=== PATIENT | female | born 1960 | race African-American/Black ===

== ENCOUNTER 2023-11-06 00:22 | Emergency (ER) | payer MEDICAID ==
[~2023-11-06] VITALS: Ht 165.1 cm; Wt 70.5 kg
[~2023-11-06 00:22] MED LIST: ASPI-1406 MT; BISA-81 MT; CLOP75TA15 PO; COR6 PO; HYDR100T26 PO; ISOS20TA8 PO; NIFE90TA60 PO; PANT40TA51 MT
[2023-11-06 00:37] VITALS: TEMP 98.3; O2SAT 100
[2023-11-06 02:05] LABS: BASOPHILS % 0.4 % (0.0-2.0); EOSINOPHILS % 1.6 % (0.0-5.0); HEMATOCRIT. 29.7 % (36.0-48.0); MEAN CORPUSCULAR HEMOGLOBIN 30.2 pg (28.0-32.0); MEAN CORPUSCULAR HGB CONC 33.6 g/dL (31.0-37.0); MEAN CORPUSCULAR VOLUME 89.9 fL (81.0-99.0); MONOCYTES % 8.5 % (2.0-8.0); NEUTROPHILS % 66.5 % (40.0-76.0); PLATELET 265 x1000/uL (130-400); RED BLOOD CELL COUNT 3.31 mill/uL (4.2-5.4); RED CELL DISTRIBUTION WIDTH 16.2 % (11.6-14.6); WHITE BLOOD COUNT 6.8 x1000/uL (4.5-11.0)
[2023-11-06 02:16] LABS: POTASSIUM 4.8 mEq/L (3.5-5.1)
[2023-11-06 02:18] LABS: CALCIUM 10.1 mg/dL (8.7-10.4)
[2023-11-06 03:32] VITALS: BP 214/112; PULSE 90; RESP 17
== END 2023-11-06 03:34 | disposition home or self-care (01) ==
LOC: ER 00:22
DX: I11.0 Hypertensive heart disease with heart failure (principal); E11.9 Type 2 diabetes mellitus without complications; K80.20 Calculus of gallbladder without cholecystitis without obstruction; I50.9 Heart failure, unspecified; Z98.890 Other specified postprocedural states
CPT/HCPCS: 36415; 71045; 80048; 83880; 85025; 93005; 99285

== ENCOUNTER 2024-07-20 03:19 | Inpatient (IN) | payer MEDICAID ==
[~2024-07-20] VITALS: Ht 165.1 cm; Wt 64.4 kg
[~2024-07-20 03:19] MED LIST changes: +HYDR100T11 PO; -HYDR100T26 PO
[2024-07-20 03:26] VITALS: RESP 30
[2024-07-20] MEDS: HYDRALAZINE 20MG/ML VIAL IV ONE (03:49)
[2024-07-20] MEDS: SODIUM CHLORIDE 0.9% 100 ML IV ONE (03:50)
[2024-07-20] MEDS: PIPERACILLIN/TAZO 3.375G/50ML 50 ML IV ONE (03:50)
[2024-07-20 03:52] LABS: CHLORIDE 114 mEq/L (98-107); POTASSIUM 5.2 mEq/L (3.5-5.1); SODIUM 142 mEq/L (136-145)
[2024-07-20 03:53] LABS: CALCIUM 10.1 mg/dL (8.7-10.4); CARBON DIOXIDE 17 mEq/L (21-32)
[2024-07-20 03:56] LABS: BASOPHILS % 0.5 % (0.0-2.0); EOSINOPHILS % 2.5 % (0.0-5.0); HEMATOCRIT. 27.3 % (36.0-48.0); LYMPHOCYTES % 10.5 % (20.0-50.0); MEAN CORPUSCULAR HEMOGLOBIN 30.1 pg (28.0-32.0); MEAN CORPUSCULAR HGB CONC 33.1 g/dL (31.0-37.0); MEAN PLATELET VOLUME 9.8 fl (7.4-10.4); MONOCYTES % 5.7 % (2.0-8.0); NEUTROPHILS % 80.8 % (40.0-76.0); PLATELET 276 x1000/uL (130-400); RED CELL DISTRIBUTION WIDTH 15.4 % (11.6-14.6)
[2024-07-20 03:58] LABS: GLUCOSE 214 mg/dL (70-105)
[2024-07-20 03:59] LABS: TROPONIN I HIGH SENSITIVITY 33 ng/L (3.0-34); UREA NITROGEN BLOOD 50 mg/dL (9-23)
[2024-07-20 04:00] LABS: ALANINE AMINOTRANSFERASE 9 IU/L (10-49); ALBUMIN 4.6 g/dL (3.2-4.8); ASPARTATE AMINOTRANSFERASE 14 IU/L (<34); BILIRUBIN DIRECT 0.1 mg/dL (<=3.0)
[2024-07-20 04:01] LABS: BILIRUBIN TOTAL 0.3 mg/dL (0.1-1.0); PROTEIN TOTAL 7.5 g/dL (6.0-8.3)
[2024-07-20 04:04] LABS: CREATININE 4.1 mg/dL (0.6-1.0); ETHANOL BLOOD < 10 mg/dL (<10)
[2024-07-20 04:06] LABS: PROTHROMBIN TIME 10.9 sec (9.6-11.0)
[2024-07-20 04:36] VITALS: RESP 33
[2024-07-20] MEDS: ALBUTEROL (0.5%) 2.5MG/0.5ML NEB HHN ONE (04:36)
[2024-07-20] MEDS: VANCOMYCIN 1.25GM/250ML 250 ML IV ONE (05:07)
[2024-07-20] MEDS: FUROSEMIDE 40MG/4ML VIAL IVP NR (05:22)
[2024-07-20 08:57] LABS: CLARITY URINE CLEAR (CLEAR); COLOR URINE YELLOW (YELLOW); GLUCOSE URINE 1+ (NEGATIVE); KETONES URINE NEGATIVE (NEGATIVE); LEUKOCYTE ESTERASE URINE NEGATIVE (NEGATIVE); NITRITE URINE NEGATIVE (NEGATIVE); OCCULT BLOOD URINE NEGATIVE (NEGATIVE); PH URINE 5.5 (4.5-8.0); PROTEIN URINE 4+ (NEGATIVE); SPECIFIC GRAVITY URINE 1.015 (1.005-1.030); UROBILINOGEN URINE 0.2 E.U./dL (0.2-1.0)
[2024-07-20 09:15] VITALS: RESP 28
[2024-07-20 09:16] LABS: BACTERIA URINE 1+; RBC URINE 0-2 /hpf (0-2); SQUAMOUS EPITHELIAL CELL URINE 1+ /lpf (RARE/1+); YEAST URINE NONE SEEN
[2024-07-20 09:46] LABS: *AMPHETAMINES SCREEN URINE NEGATIVE (NEGATIVE); *BARBITURATES SCREEN URINE NEGATIVE (NEGATIVE); *BENZODIAZEPINES SCREEN URINE NEGATIVE (NEGATIVE); *COCAINE SCREEN URINE NEGATIVE (NEGATIVE); CANNABINOID URINE SCREEN NEGATIVE (NEGATIVE); ECSTASY MDMA SCREEN URINE NEGATIVE (NEGATIVE); METHADONE URINE SCREEN NEGATIVE (NEGATIVE); OPIATES URINE SCREEN NEGATIVE (NEGATIVE); PHENCYCLIDINE URINE SCREEN NEGATIVE (NEGATIVE)
[2024-07-20] MEDS ORDERED: CLONIDINE 0.2MG TABLET PO PRN (10:20)
[2024-07-20] MEDS: CLONIDINE 0.1MG TABLET PO PRN (10:49)
[2024-07-20 11:05] LABS: BG BASE EXCESS -10.1 mmol/L (-2.0-3.0); BG CARBOXYHEMOGLOBIN 0.6 % (0.5-1.5); BG DEOXYHEMOGLOBIN 0.3 % (0.0-5.0); BG FRACTION INSPIRED OXYGEN 80; BG HCO3 ACT 15.2 mmol/L (21.0-28.0); BG METHEMOGLOBIN 0.5 % (0.5-1.5); BG OXYGEN SATURATION 99.7 % (94.0-98.0); BG OXYHEMOGLOBIN 98.6 % (94.0-98.0); BG PCO2 31.4 mmHg (32.0-45.0); BG PH 7.304 (7.350-7.450); BG PO2 280.1 mmHg (83.0-108.0); BG SAMPLE SITE RIGHT RADIAL; BG TOTAL HEMOGLOBIN 8.1 g/dL (12.0-16.0); BG VENT MODE MASK - BIPAP
[2024-07-20 13:14] LABS: CREATINE KINASE 358 IU/L (34-145)
[2024-07-20 14:10] VITALS: RESP 22
[2024-07-20] MEDS: AZITHROMYCIN 500 MG TABLET PO SCH (14:14)
[2024-07-20] MEDS ORDERED: IPRATROPIUM/ALBUTEROL 0.5-3(2.5)MG/3ML NEB HHN PRN (15:30)
[2024-07-20] MEDS ORDERED: METHYLPREDNISOLONE SOD SUCC 40MG/ML (ACT-O-VIAL) IV SCH (15:30)
[2024-07-20 18:00] VITALS: RESP 20
[2024-07-20] MEDS ORDERED: HYDROCODONE/ACETAMINOPHEN 5/325MG TABLET PO PRN (18:15)
[2024-07-20] MEDS ORDERED: IPRATROPIUM/ALBUTEROL 0.5-3(2.5)MG/3ML NEB NEB PRN (18:15)
[2024-07-20] MEDS ORDERED: ACETAMINOPHEN 325MG TABLET PO PRN (18:15)
[2024-07-20] MEDS ORDERED: CLONIDINE 0.1MG TABLET PO PRN (18:15)
[2024-07-20] MEDS ORDERED: ENOXAPARIN 40MG/0.4ML SYR SUBCUT SCH (18:15)
[2024-07-20] MEDS ORDERED: ONDANSETRON HCL 4MG/2ML INJ IV PRN (18:15)
[2024-07-20] MEDS ORDERED: MORPHINE SULFATE 2 MG/ML INJ (NOT FOR IM USE) IV PRN (18:15)
[2024-07-20] MEDS ORDERED: NALOXONE HCL 0.4MG/ML VIAL IV PRN (18:30)
[2024-07-20] MEDS ORDERED: HYDRALAZINE HCL 25MG TABLET PO SCH (19:00)
[2024-07-20] MEDS ORDERED: HYDRALAZINE 20MG/ML VIAL IV PRN (19:00)
[2024-07-20] MEDS: FUROSEMIDE 40MG/4ML VIAL IVP SCH (19:39)
[2024-07-20] MEDS: ENALAPRIL 1.25MG/ML VIAL 1ML IV PRN (19:39)
[2024-07-20] MEDS: ASPIRIN 81MG EC TABLET PO SCH (19:40)
[2024-07-20] MEDS: AMLODIPINE 5MG TABLET PO NR (19:40)
[2024-07-20] MEDS: CLOPIDOGREL 75MG TABLET PO SCH (19:40)
[2024-07-20] MEDS: ENOXAPARIN 30MG/0.3ML SYR SUBCUT SCH (19:41)
[2024-07-20] MEDS: PANTOPRAZOLE 40MG DR TABLET PO SCH (19:42)
[2024-07-20] MEDS ORDERED: PIPERACILLIN/TAZO 3.375G/50ML 50 ML IV SCH (20:00)
[2024-07-20] MEDS: CEFTRIAXONE 2GM/50ML 50 ML IV SCH (20:11)
[2024-07-20 21:05] VITALS: BP 211/101; PULSE 90; RESP 20; TEMP 37.1408
[2024-07-20] MEDS: NIFEDIPINE XL 90MG TAB PO SCH (21:39)
[2024-07-20] MEDS: HYDRALAZINE HCL 100MG TABLET PO SCH (21:39)
[2024-07-20] MEDS: CARVEDILOL 6.25 MG TABLET PO SCH (21:40)
[2024-07-20] MEDS: METHYLPREDNISOLONE SOD SUCC 125MG/2ML (ACT-O-VIAL) IV SCH (21:40)
[2024-07-20] MEDS: ISOSORBIDE DINITRATE 20MG TABLET PO SCH (23:58)
[2024-07-21] VITALS (10 sets, daily range): BP systolic 125–144; BP diastolic 52–66; PULSE 71–86; RESP 16–22; TEMP 36.55848–36.78072; O2SAT 96–100
[2024-07-21] MEDS: IPRATROPIUM/ALBUTEROL 0.5-3(2.5)MG/3ML NEB HHN SCH (02:30)
[2024-07-21 08:49] LABS: POTASSIUM 5.3 mEq/L (3.5-5.1)
[2024-07-21 08:50] LABS: CALCIUM 9.6 mg/dL (8.7-10.4)
[2024-07-21 08:54] LABS: CREATINE KINASE MB FRACTION 2.9 ng/mL (0.5-3.6)
[2024-07-21 08:55] LABS: CREATININE 4.1 mg/dL (0.6-1.0)
[2024-07-21 09:12] LABS: HEPATITIS B SURFACE ANTIGEN NEGATIVE (Negative)
[2024-07-21] MEDS: AMLODIPINE 10MG TABLET PO SCH (09:25)
[2024-07-21 09:33] LABS: HEPATITIS C AB NON REACTIVE (Neg) (Negative)
[2024-07-21 09:40] LABS: BG BASE EXCESS -10.5 mmol/L (-2.0-3.0); BG CARBOXYHEMOGLOBIN 2.5 % (0.5-1.5); BG DEOXYHEMOGLOBIN 1.7 % (0.0-5.0); BG FRACTION INSPIRED OXYGEN 32; BG HCO3 ACT 14.5 mmol/L (21.0-28.0); BG METHEMOGLOBIN 0.3 % (0.5-1.5); BG OXYGEN SATURATION 98.3 % (94.0-98.0); BG OXYHEMOGLOBIN 95.5 % (94.0-98.0); BG PCO2 28.7 mmHg (32.0-45.0); BG PH 7.322 (7.350-7.450); BG PO2 107.7 mmHg (83.0-108.0); BG SAMPLE SITE RIGHT RADIAL; BG TOTAL HEMOGLOBIN 6.7 g/dL (12.0-16.0); BG VENT MODE NASAL CANNULA
[2024-07-21 10:59] LABS: HEMATOCRIT. 21.7 % (36.0-48.0); MEAN CORPUSCULAR HEMOGLOBIN 29.4 pg (28.0-32.0); MEAN CORPUSCULAR HGB CONC 31.8 g/dL (31.0-37.0); MEAN CORPUSCULAR VOLUME 92.3 fL (81.0-99.0); MEAN PLATELET VOLUME 10.1 fl (7.4-10.4); PLATELET 232 x1000/uL (130-400); RED BLOOD CELL COUNT 2.35 mill/uL (4.2-5.4); RED CELL DISTRIBUTION WIDTH 15.3 % (11.6-14.6); WHITE BLOOD COUNT 6.2 x1000/uL (4.5-11.0)
[2024-07-21 11:16] LABS: DIFFERENTIAL COMMENT 1; HEMOGLOBIN. 6.9 g/dL (12.0-16.0)
[2024-07-21] MEDS ORDERED: SODIUM POLYSTYRENE SULFONATE 15 G/60 ML BOT PO ONE (12:30)
[2024-07-21] MEDS: ISOSORBIDE DINITRATE 20MG TABLET PO SCH (13:00)
[2024-07-21 13:19] LABS: HEMATOCRIT 23.1 % (36.0-48.0); HEMOGLOBIN 7.3 g/dL (12.0-16.0)
[2024-07-21] MEDS: CITRIC ACID/SODIUM CITRATE SOLN 30ML UDC PO SCH (14:04)
[2024-07-21] MEDS: SODIUM ZIRCONIUM CYCLOSILICATE 10GM/PACKET PO NR (14:04)
[2024-07-21] MEDS: CEFTRIAXONE 2GM/50ML 50 ML IV SCH (21:33)
[2024-07-22] VITALS (11 sets, daily range): BP systolic 125–140; BP diastolic 47–72; PULSE 72–91; RESP 16–18; TEMP 35.94732–37.503; O2SAT 95–99
[2024-07-22 06:36] LABS: PLATELET ESTIMATE NORMAL
[2024-07-22 06:54] LABS: POTASSIUM 5.3 mEq/L (3.5-5.1)
[2024-07-22 06:56] LABS: CALCIUM 9.7 mg/dL (8.7-10.4)
[2024-07-22 07:00] LABS: CREATININE 4.6 mg/dL (0.6-1.0)
[2024-07-22 07:25] LABS: HEMATOCRIT. 22.4 % (36.0-48.0); HEMOGLOBIN. 7.3 g/dL (12.0-16.0); MEAN CORPUSCULAR HEMOGLOBIN 29.4 pg (28.0-32.0); MEAN CORPUSCULAR HGB CONC 32.5 g/dL (31.0-37.0); MEAN CORPUSCULAR VOLUME 90.4 fL (81.0-99.0); MEAN PLATELET VOLUME 10.1 fl (7.4-10.4); PLATELET 267 x1000/uL (130-400); RED BLOOD CELL COUNT 2.48 mill/uL (4.2-5.4); RED CELL DISTRIBUTION WIDTH 14.6 % (11.6-14.6); WHITE BLOOD COUNT 6.6 x1000/uL (4.5-11.0)
[2024-07-22 07:32] LABS: DIFFERENTIAL COMMENT 1
[2024-07-22 11:39] LABS: PLATELET ESTIMATE NORMAL
[2024-07-22] MEDS: METHYLPREDNISOLONE SOD SUCC 40MG/ML (ACT-O-VIAL) IV SCH (21:21)
[2024-07-23] VITALS (17 sets, daily range): BP systolic 121–161; BP diastolic 48–77; PULSE 67–86; RESP 15–20; TEMP 35.89176–36.89184; O2SAT 95–98
[2024-07-23 07:10] LABS: POTASSIUM 5.4 mEq/L (3.5-5.1)
[2024-07-23 07:18] LABS: CALCIUM 8.7 mg/dL (8.7-10.4)
[2024-07-23 07:21] LABS: CREATININE 4.9 mg/dL (0.6-1.0)
[2024-07-23 07:46] LABS: HEMATOCRIT. 21.4 % (36.0-48.0); MEAN CORPUSCULAR HEMOGLOBIN 29.6 pg (28.0-32.0); MEAN CORPUSCULAR HGB CONC 32.9 g/dL (31.0-37.0); MEAN CORPUSCULAR VOLUME 89.8 fL (81.0-99.0); MEAN PLATELET VOLUME 10.2 fl (7.4-10.4); PLATELET 263 x1000/uL (130-400); RED BLOOD CELL COUNT 2.38 mill/uL (4.2-5.4); RED CELL DISTRIBUTION WIDTH 14.7 % (11.6-14.6); WHITE BLOOD COUNT 8.8 x1000/uL (4.5-11.0)
[2024-07-23 08:21] LABS: DIFFERENTIAL COMMENT 1
[2024-07-23] MEDS: SODIUM BICARBONATE 650MG TABLET PO SCH (09:45)
[2024-07-23] MEDS: SODIUM ZIRCONIUM CYCLOSILICATE 10GM/PACKET PO NR (09:45)
[2024-07-23] MEDS: ALBUTEROL (0.5%) 2.5MG/0.5ML NEB HHN NR (09:55)
[2024-07-23] MEDS: EPOETIN ALFA-EPBX 4,000 UNIT/ML VIAL SUBCUT SCH (13:16)
[2024-07-23 13:48] LABS: PLATELET ESTIMATE NORMAL
[2024-07-23 21:23] LABS: HEMATOCRIT 24.7 % (36.0-48.0); HEMOGLOBIN 8.2 g/dL (12.0-16.0)
[2024-07-24] VITALS: BP 132/52; PULSE 81; RESP 18; TEMP 37.00296; O2SAT 96
[2024-07-24 04:00] VITALS: BP 131/55; PULSE 73; RESP 18; TEMP 36.72516; O2SAT 96
[2024-07-24 06:58] LABS: POTASSIUM 4.5 mEq/L (3.5-5.1)
[2024-07-24 06:59] LABS: CALCIUM 8.4 mg/dL (8.7-10.4)
[2024-07-24 07:29] LABS: BASOPHILS % 0.1 % (0.0-2.0); EOSINOPHILS % 1.6 % (0.0-5.0); HEMATOCRIT. 24.7 % (36.0-48.0); HEMOGLOBIN. 8.4 g/dL (12.0-16.0); LYMPHOCYTES % 14.3 % (20.0-50.0); MEAN CORPUSCULAR HEMOGLOBIN 30.1 pg (28.0-32.0); MEAN CORPUSCULAR HGB CONC 33.9 g/dL (31.0-37.0); MEAN CORPUSCULAR VOLUME 88.8 fL (81.0-99.0); MEAN PLATELET VOLUME 10.1 fl (7.4-10.4); PLATELET 287 x1000/uL (130-400); RED BLOOD CELL COUNT 2.78 mill/uL (4.2-5.4)
[2024-07-24 08:00] VITALS: BP 133/51; PULSE 80; RESP 22; TEMP 36.50292; O2SAT 99
[2024-07-24] MEDS: METHYLPREDNISOLONE SOD SUCC 40MG/ML (ACT-O-VIAL) IV SCH (09:36)
[2024-07-24] MEDS ORDERED: SODI650T PO (12:04)
[2024-07-24] MEDS ORDERED: FURO-151 PO (12:04)
[2024-07-24] MEDS ORDERED: ISOS20TA8 PO (12:04)
[2024-07-24 13:15] VITALS: BP 134/59; PULSE 87; TEMP 97.7; O2SAT 98
[2024-07-24] MEDS ORDERED: GUAIFENESIN 600MG ER TABLET PO SCH (21:00)
[2024-07-25 13:06] LABS: ALBUMIN 2.9 g/dL (2.9-4.4); ALPHA-1-GLOBULIN 0.4 g/dL (0.0-0.4); ALPHA-2-GLOBULIN 0.9 g/dL (0.4-1.0); BETA GLOBULIN 0.9 g/dL (0.7-1.3); GAMMA GLOBULINS 0.8 g/dL (0.4-1.8); M-SPIKE Not Observed g/dL (Not Observed); TOTAL PROTEIN SERUM 5.9 g/dL (6.0-8.5)
== END 2024-07-24 14:40 | disposition home or self-care (01) | DRG 720 ==
LOC: ER 03:25 → 5EST 05:04 → EDBEDREQ 05:10 → EDBEDREQTM 05:10 → 6EST 07-21 23:09
PROVIDERS: ADMIT Internal Medicine; ATTEND Internal Medicine
PROC: 5A09357 Assistance with Respiratory Ventilation, Less than 24 Consecutive Hours, Continuous Positive Airway Pressure (ICD-10-PCS; principal; 2024-07-20)
PROC: 30233N1 Transfusion of Nonautologous Red Blood Cells into Peripheral Vein, Percutaneous Approach (ICD-10-PCS; 2024-07-23)
DX: A41.9 Sepsis, unspecified organism (principal); J96.01 Acute respiratory failure with hypoxia; N17.0 Acute kidney failure with tubular necrosis; R65.21 Severe sepsis with septic shock; I50.43 Acute on chronic combined systolic (congestive) and diastolic (congestive) heart failure; J18.9 Pneumonia, unspecified organism; N18.6 End stage renal disease; E87.20 Acidosis, unspecified; Z20.822 Contact with and (suspected) exposure to COVID-19; I13.2 Hypertensive heart and chronic kidney disease with heart failure and with stage 5 chronic kidney disease, or end stage renal disease; E11.22 Type 2 diabetes mellitus with diabetic chronic kidney disease; D64.9 Anemia, unspecified; E87.5 Hyperkalemia; Z79.02 Long term (current) use of antithrombotics/antiplatelets; Z51.5 Encounter for palliative care; Z86.718 Personal history of other venous thrombosis and embolism; Z91.148 Patient's other noncompliance with medication regimen for other reason; Z98.51 Tubal ligation status; Z85.3 Personal history of malignant neoplasm of breast
CPT/HCPCS: 36415; 36600; 71045; 76770; 78580; 80048; 80076; 80305; 80320; 81003; 82375; 82550; 82553; 82805; 82962; 83605; 83880; 84145; 84155; 84165; 84484; 85014; 85018; 85025; 85379; 86038; 86705; 86850; 86900; 86920; 87340; 87426; 87804; 93005; 93306; 93970; 94070; 94640; 94660; 99291; A4606; A4663; J0360; J0696; J0885; J1650; J1940; J2270; J2543; J2919; J2920; J3370; J3490; J7050; P9016; G0480

== ENCOUNTER 2024-09-24 07:03 | Inpatient (IN) | payer MEDICAID ==
[~2024-09-24] VITALS: Ht 165.1 cm; Wt 60.6 kg
[2024-09-24] VITALS (49 sets, daily range): BP systolic 130–210; BP diastolic 60–97; PULSE 88–112; RESP 14–23; TEMP 36.2–37; O2SAT 93–100
[~2024-09-24 07:03] MED LIST changes: +FURO-151 PO; +SODI650T PO
[2024-09-24] MEDS: FUROSEMIDE 40MG/4ML VIAL IVP ONE (07:28)
[2024-09-24 07:58] LABS: CHLORIDE 111 mEq/L (98-107)
[2024-09-24 07:59] LABS: CALCIUM 9.4 mg/dL (8.7-10.4); CARBON DIOXIDE 19 mEq/L (21-32)
[2024-09-24 08:00] LABS: SODIUM 140 mEq/L (136-145)
[2024-09-24] MEDS ORDERED: NITROGLYCERIN 50MG PREMIX 250 ML IV ONE (08:00)
[2024-09-24 08:04] LABS: CREATININE 4.1 mg/dL (0.6-1.0); GLUCOSE 142 mg/dL (70-105); UREA NITROGEN BLOOD 50 mg/dL (9-23)
[2024-09-24 08:09] LABS: BASOPHILS % 0.7 % (0.0-2.0); EOSINOPHILS % 4.3 % (0.0-5.0); HEMOGLOBIN. 9.8 g/dL (12.0-16.0); LYMPHOCYTES % 43.7 % (20.0-50.0); MEAN CORPUSCULAR HEMOGLOBIN 29.2 pg (28.0-32.0); MEAN CORPUSCULAR HGB CONC 31.7 g/dL (31.0-37.0); MEAN CORPUSCULAR VOLUME 92.3 fL (81.0-99.0); MEAN PLATELET VOLUME 10.2 fl (7.4-10.4); MONOCYTES % 5.3 % (2.0-8.0); PLATELET 286 x1000/uL (130-400); RED BLOOD CELL COUNT 3.36 mill/uL (4.2-5.4); RED CELL DISTRIBUTION WIDTH 16.3 % (11.6-14.6)
[2024-09-24 08:10] LABS: POTASSIUM 8.4 mEq/L (3.5-5.1); TROPONIN I HIGH SENSITIVITY 118 ng/L (3.0-34)
[2024-09-24] MEDS: NITROGLYCERIN 50MG PREMIX 250 ML IV PRN (08:13)
[2024-09-24 08:51] LABS: POTASSIUM 4.7 mEq/L (3.5-5.1)
[2024-09-24 08:52] LABS: CALCIUM 9.8 mg/dL (8.7-10.4)
[2024-09-24 08:57] LABS: CREATININE 4.1 mg/dL (0.6-1.0)
[2024-09-24 09:15] LABS: BG BASE EXCESS -8.5 mmol/L (-2.0-3.0); BG CARBOXYHEMOGLOBIN 0.4 % (0.5-1.5); BG DEOXYHEMOGLOBIN 0.2 % (0.0-5.0); BG FRACTION INSPIRED OXYGEN 60; BG HCO3 ACT 16.4 mmol/L (21.0-28.0); BG METHEMOGLOBIN 0.2 % (0.5-1.5); BG OXYGEN SATURATION 99.8 % (94.0-98.0); BG OXYHEMOGLOBIN 99.2 % (94.0-98.0); BG PCO2 31.4 mmHg (32.0-45.0); BG PH 7.335 (7.350-7.450); BG PO2 285.3 mmHg (83.0-108.0); BG SAMPLE SITE RIGHT BRACHIAL; BG TOTAL HEMOGLOBIN 10.2 g/dL (12.0-16.0); BG VENT MODE MASK - BIPAP
[2024-09-24] MEDS ORDERED: MORPHINE SULFATE 2 MG/ML INJ (NOT FOR IM USE) IV PRN (11:15)
[2024-09-24] MEDS ORDERED: ACETAMINOPHEN 325MG TABLET PO PRN (11:15)
[2024-09-24] MEDS ORDERED: ZOLPIDEM TARTRATE 5MG TABLET PO PRN (11:15)
[2024-09-24] MEDS ORDERED: CLONIDINE 0.1MG TABLET PO PRN (11:15)
[2024-09-24] MEDS ORDERED: ONDANSETRON HCL 4MG/2ML INJ IV PRN (11:15)
[2024-09-24] MEDS ORDERED: HYDROCODONE/ACETAMINOPHEN 5/325MG TABLET PO PRN (11:15)
[2024-09-24] MEDS ORDERED: NALOXONE HCL 0.4MG/ML VIAL IV PRN (11:30)
[2024-09-24] MEDS: HYDRALAZINE 20MG/ML VIAL IV PRN (16:10)
[2024-09-24] MEDS: FUROSEMIDE 40MG/4ML VIAL IVP SCH (16:10)
[2024-09-24] MEDS: SODIUM BICARBONATE 650MG TABLET PO SCH (16:11)
[2024-09-24] MEDS: HYDRALAZINE HCL 100MG TABLET PO SCH (16:11)
[2024-09-24] MEDS: ENOXAPARIN 30MG/0.3ML SYR SUBCUT SCH (16:12)
[2024-09-24 17:38] LABS: TROPONIN I HIGH SENSITIVITY 111 ng/L (3.0-34)
[2024-09-24 18:28] LABS: *AMPHETAMINES SCREEN URINE NEGATIVE (NEGATIVE); *BARBITURATES SCREEN URINE NEGATIVE (NEGATIVE); *BENZODIAZEPINES SCREEN URINE NEGATIVE (NEGATIVE); *COCAINE SCREEN URINE NEGATIVE (NEGATIVE)
[2024-09-24 18:29] LABS: CANNABINOID URINE SCREEN NEGATIVE (NEGATIVE); ECSTASY MDMA SCREEN URINE NEGATIVE (NEGATIVE); METHADONE URINE SCREEN NEGATIVE (NEGATIVE); OPIATES URINE SCREEN NEGATIVE (NEGATIVE); PHENCYCLIDINE URINE SCREEN NEGATIVE (NEGATIVE)
[2024-09-24] MEDS: NIFEDIPINE XL 90MG TAB PO SCH (21:25)
[2024-09-24] MEDS: ISOSORBIDE DINITRATE 20MG TABLET PO SCH (21:26)
[2024-09-24] MEDS: CARVEDILOL 6.25 MG TABLET PO SCH (21:26)
[2024-09-25] VITALS (86 sets, daily range): BP systolic 118–156; BP diastolic 51–110; PULSE 74–93; RESP 3–35; TEMP 36.7–37.1; O2SAT 91–100
[2024-09-25 00:24] LABS: TROPONIN I HIGH SENSITIVITY 130 ng/L (3.0-34)
[2024-09-25 05:55] LABS: BASOPHILS % 0.7 % (0.0-2.0); EOSINOPHILS % 3.3 % (0.0-5.0); HEMATOCRIT. 23.9 % (36.0-48.0); HEMOGLOBIN. 7.7 g/dL (12.0-16.0); LYMPHOCYTES % 21.6 % (20.0-50.0); MEAN CORPUSCULAR HEMOGLOBIN 29.7 pg (28.0-32.0); MEAN CORPUSCULAR HGB CONC 32.3 g/dL (31.0-37.0); MEAN PLATELET VOLUME 9.7 fl (7.4-10.4); MONOCYTES % 10.5 % (2.0-8.0); NEUTROPHILS % 63.9 % (40.0-76.0); PLATELET 217 x1000/uL (130-400); RED CELL DISTRIBUTION WIDTH 15.3 % (11.6-14.6); WHITE BLOOD COUNT 4.7 x1000/uL (4.5-11.0)
[2024-09-25 06:08] LABS: POTASSIUM 4.3 mEq/L (3.5-5.1)
[2024-09-25 06:14] LABS: CREATININE 4.1 mg/dL (0.6-1.0)
[2024-09-25] MEDS: PANTOPRAZOLE SODIUM 40 MG/VIAL IV SCH (08:30)
[2024-09-25] MEDS: CLOPIDOGREL 75MG TABLET PO SCH (08:31)
[2024-09-25] MEDS: ASPIRIN 81MG EC TABLET PO SCH (08:31)
[2024-09-25 08:39] LABS: CREATINE KINASE 210 IU/L (34-145)
[2024-09-25 17:22] LABS: HEMATOCRIT 23.6 % (36.0-48.0); HEMOGLOBIN 7.6 g/dL (12.0-16.0); MEAN CORPUSCULAR HEMOGLOBIN 29.1 pg (28.0-32.0); MEAN CORPUSCULAR HGB CONC 32.1 g/dL (31.0-37.0); MEAN CORPUSCULAR VOLUME 90.8 fL (81.0-99.0); PLATELET 220 x1000/uL (130-400); WHITE BLOOD COUNT 4.1 x1000/uL (4.5-11.0)
[2024-09-26] VITALS: BP 125/51; PULSE 79; RESP 18; TEMP 36.5; O2SAT 98
[2024-09-26 04:00] VITALS: BP 133/61; PULSE 80; RESP 18; TEMP 36.7; O2SAT 100
[2024-09-26 07:20] LABS: POTASSIUM 4.4 mEq/L (3.5-5.1)
[2024-09-26 07:21] LABS: CALCIUM 9.3 mg/dL (8.7-10.4)
[2024-09-26 07:26] LABS: CREATININE 4.8 mg/dL (0.6-1.0)
[2024-09-26 07:45] LABS: BASOPHILS % 0.8 % (0.0-2.0); EOSINOPHILS % 5.6 % (0.0-5.0); HEMATOCRIT. 24.7 % (36.0-48.0); HEMOGLOBIN. 8.1 g/dL (12.0-16.0); LYMPHOCYTES % 29.9 % (20.0-50.0); MEAN CORPUSCULAR HEMOGLOBIN 29.7 pg (28.0-32.0); MEAN CORPUSCULAR HGB CONC 32.8 g/dL (31.0-37.0); MEAN CORPUSCULAR VOLUME 90.6 fL (81.0-99.0); MEAN PLATELET VOLUME 10.4 fl (7.4-10.4); MONOCYTES % 10.8 % (2.0-8.0); NEUTROPHILS % 52.9 % (40.0-76.0); PLATELET 221 x1000/uL (130-400); RED BLOOD CELL COUNT 2.72 mill/uL (4.2-5.4); RED CELL DISTRIBUTION WIDTH 15.3 % (11.6-14.6); WHITE BLOOD COUNT 3.5 x1000/uL (4.5-11.0)
[2024-09-26 08:00] VITALS: BP 137/65; PULSE 84; RESP 19; TEMP 36.7; O2SAT 96
[2024-09-26 12:00] VITALS: BP 119/52; PULSE 70; RESP 16; TEMP 36.5; O2SAT 99
[2024-09-26 16:40] VITALS: BP 119/52; PULSE 70; TEMP 97.7; O2SAT 99
== END 2024-09-26 18:15 | disposition home or self-care (01) | DRG 194 ==
LOC: ER 07:21 → EDBEDREQ 07:45 → CVICU 08:25 → EDBEDREQSVC 08:26 → EDBEDREQTM 08:29 → EDBEDREQ 08:29 → 6WST 09-25 21:47
PROVIDERS: ADMIT Internal Medicine; ATTEND Internal Medicine
PROC: 5A09357 Assistance with Respiratory Ventilation, Less than 24 Consecutive Hours, Continuous Positive Airway Pressure (ICD-10-PCS; principal; 2024-09-24)
DX: I13.0 Hypertensive heart and chronic kidney disease with heart failure and stage 1 through stage 4 chronic kidney disease, or unspecified chronic kidney disease (principal); J96.21 Acute and chronic respiratory failure with hypoxia; E87.20 Acidosis, unspecified; N17.9 Acute kidney failure, unspecified; D63.1 Anemia in chronic kidney disease; I50.33 Acute on chronic diastolic (congestive) heart failure; J81.1 Chronic pulmonary edema; I16.1 Hypertensive emergency; E11.65 Type 2 diabetes mellitus with hyperglycemia; E11.22 Type 2 diabetes mellitus with diabetic chronic kidney disease; N18.4 Chronic kidney disease, stage 4 (severe); J84.9 Interstitial pulmonary disease, unspecified; E87.5 Hyperkalemia; E78.5 Hyperlipidemia, unspecified; Z85.3 Personal history of malignant neoplasm of breast; Z88.0 Allergy status to penicillin; Z79.82 Long term (current) use of aspirin; Z86.718 Personal history of other venous thrombosis and embolism
CPT/HCPCS: 36415; 36600; 71045; 76770; 80048; 80305; 82375; 82550; 82805; 83880; 84484; 85025; 85027; 93005; 93970; 99291; A4606; J0360; J1650; J1940; J2470; J3490

== ENCOUNTER 2025-03-08 20:59 | Inpatient (IN) | payer MEDICAID ==
[~2025-03-08] VITALS: Ht 154.9 cm; Wt 60.9 kg
[2025-03-08 23:21] LABS: BASOPHILS % 0.7 % (0.0-2.0); EOSINOPHILS % 2.9 % (0.0-5.0); HEMATOCRIT. 26.1 % (36.0-48.0); HEMOGLOBIN. 8.5 g/dL (12.0-16.0); LYMPHOCYTES % 17.2 % (20.0-50.0); MEAN PLATELET VOLUME 9.2 fl (7.4-10.4); MONOCYTES % 7.8 % (2.0-8.0); NEUTROPHILS % 71.4 % (40.0-76.0); PLATELET 340 x1000/uL (130-400); RED BLOOD CELL COUNT 2.90 mill/uL (4.2-5.4); RED CELL DISTRIBUTION WIDTH 15.7 % (11.6-14.6)
[2025-03-08 23:40] LABS: UREA NITROGEN BLOOD 93 mg/dL (9-23)
[2025-03-08] MEDS: ONDANSETRON HCL 4MG/2ML INJ IV ONE (23:40)
[2025-03-08 23:41] LABS: ASPARTATE AMINOTRANSFERASE 9 IU/L (<34)
[2025-03-08] MEDS: MORPHINE SULFATE 4 MG/ML INJ (FOR IV/IM USE) IV ONE (23:41)
[2025-03-08 23:42] LABS: BILIRUBIN DIRECT < 0.1 mg/dL (<=3.0); PROTEIN TOTAL 7.1 g/dL (6.0-8.3)
[2025-03-08 23:51] LABS: BILIRUBIN TOTAL < 0.2 mg/dL (0.1-1.0)
[2025-03-08 23:53] LABS: TROPONIN I HIGH SENSITIVITY 59 ng/L (3.0-34)
[2025-03-08 23:54] LABS: CREATININE 6.7 mg/dL (0.6-1.0)
[2025-03-09] MEDS ORDERED: SODIUM BICARBONATE 8.4% 50MEQ/50ML VIAL IV NR (01:15)
[2025-03-09 02:07] LABS: TROPONIN I HIGH SENSITIVITY 56 ng/L (3.0-34)
[2025-03-09] MEDS: LABETALOL 5MG/ML 4ML INJ IV NR (02:23)
[2025-03-09] MEDS: DEXTROSE 50% WATER 50ML SYRINGE IV NR (02:24)
[2025-03-09] MEDS: INSULIN REGULAR (HUMULIN R) 1000UNITS/10ML VIAL IV NR (02:24)
[2025-03-09] MEDS: SODIUM BICARBONATE 8.4% 50MEQ/50ML SYR IV NR (02:24)
[2025-03-09] MEDS: LABETALOL 5MG/ML 4ML INJ IV ONE (04:01)
[2025-03-09 04:15] VITALS: BP 213/98; PULSE 89; RESP 18; TEMP 36.4; TEMP 36.4736; O2SAT 96
[2025-03-09] MEDS ORDERED: SEVE800T25 (04:44)
[2025-03-09] MEDS ORDERED: BO1 TP (04:44)
[2025-03-09] MEDS ORDERED: LABE100T9 PO (04:44)
[2025-03-09] MEDS ORDERED: GUAI400T99 PO (04:44)
[2025-03-09] MEDS ORDERED: MELO-104 PO (04:44)
[2025-03-09] MEDS ORDERED: CYCL5TAB3 PO (04:44)
[2025-03-09] MEDS ORDERED: CLONIDINE 0.1MG TABLET PO PRN (05:15)
[2025-03-09] MEDS: SEVELAMER CARBONATE 800 MG TABLET PO SCH (05:57)
[2025-03-09] MEDS: AMLODIPINE 10MG TABLET PO SCH (05:57)
[2025-03-09] MEDS: HYDROCODONE/ACETAMINOPHEN 10/325MG TABLET PO PRN (05:57)
[2025-03-09] MEDS: HYDRALAZINE HCL 100MG TABLET PO SCH (05:57)
[2025-03-09 06:15] LABS: PLATELET 333 x1000/uL (130-400); RED BLOOD CELL COUNT 3.10 mill/uL (4.2-5.4); RED CELL DISTRIBUTION WIDTH 15.7 % (11.6-14.6)
[2025-03-09 06:31] LABS: UREA NITROGEN BLOOD 86.0 mg/dL (9-23)
[2025-03-09 07:54] LABS: CREATININE 6.7 mg/dL (0.6-1.0)
[2025-03-09 08:43] VITALS: BP 140/67; PULSE 84; RESP 20; TEMP 37; O2SAT 96
[2025-03-09] MEDS: PANTOPRAZOLE 40MG DR TABLET PO SCH (09:37)
[2025-03-09] MEDS: NIFEDIPINE XL 90MG TAB PO SCH (09:37)
[2025-03-09] MEDS: ISOSORBIDE DINITRATE 20MG TABLET PO SCH (09:37)
[2025-03-09] MEDS: LABETALOL HCL 100MG TABLET PO SCH (09:38)
[2025-03-09] MEDS: FUROSEMIDE 40MG TABLET PO SCH (09:38)
[2025-03-09] MEDS: CLOPIDOGREL 75MG TABLET PO SCH (09:38)
[2025-03-09] MEDS: CARVEDILOL 6.25 MG TABLET PO SCH (09:39)
[2025-03-09] MEDS ORDERED: HYDRALAZINE 20MG/ML VIAL IV PRN (09:45)
[2025-03-09] MEDS: SODIUM ZIRCONIUM CYCLOSILICATE 10GM/PACKET PO NR (10:44)
[2025-03-09] MEDS: FUROSEMIDE 20MG/2ML VIAL IVP NR (10:44)
[2025-03-09 12:00] VITALS: BP 131/61; PULSE 80; RESP 20; TEMP 36.6; O2SAT 98
[2025-03-09] MEDS ORDERED: ASPIRIN 81MG TABLET PO SCH (12:00)
[2025-03-09 16:39] VITALS: BP 139/72; PULSE 78; RESP 20; TEMP 37.2; O2SAT 100
[2025-03-09] MEDS: IPRATROPIUM/ALBUTEROL 0.5-3(2.5)MG/3ML NEB HHN SCH (18:00)
[2025-03-09 20:00] VITALS: BP 160/75; PULSE 94; RESP 19; TEMP 36.3; O2SAT 98
[2025-03-09] MEDS: IPRATROPIUM/ALBUTEROL 0.5-3(2.5)MG/3ML NEB HHN NR (20:41)
[2025-03-09 20:42] VITALS: PULSE 87; RESP 16; O2SAT 96
[2025-03-09] MEDS: FUROSEMIDE 40MG/4ML VIAL IVP SCH (21:00)
[2025-03-10] VITALS (12 sets, daily range): BP systolic 108–136; BP diastolic 41–89; PULSE 73–85; RESP 15–22; TEMP 36.4–36.8; O2SAT 89–99
[2025-03-10 00:13] LABS: LACTATE DEHYDROGENASE 338.0 IU/L (120-246)
[2025-03-10 00:14] LABS: PROTEIN TOTAL 6.8 g/dL (6.0-8.3)
[2025-03-10 07:49] LABS: BASOPHILS % 0.6 % (0.0-2.0); EOSINOPHILS % 3.8 % (0.0-5.0); HEMATOCRIT. 23.5 % (36.0-48.0); HEMOGLOBIN. 7.5 g/dL (12.0-16.0); LYMPHOCYTES % 16.4 % (20.0-50.0); MEAN PLATELET VOLUME 9.1 fl (7.4-10.4); MONOCYTES % 7.1 % (2.0-8.0); NEUTROPHILS % 72.1 % (40.0-76.0); PLATELET 309 x1000/uL (130-400); RED BLOOD CELL COUNT 2.60 mill/uL (4.2-5.4); RED CELL DISTRIBUTION WIDTH 16.0 % (11.6-14.6)
[2025-03-10 08:13] LABS: UREA NITROGEN BLOOD 81.0 mg/dL (9-23)
[2025-03-10 08:16] LABS: CREATININE 7.2 mg/dL (0.6-1.0)
[2025-03-10] MEDS ORDERED: ALBUTEROL (0.083%) 2.5MG/3ML NEB HHN NR (09:15)
[2025-03-10] MEDS ORDERED: NALOXONE HCL 0.4MG/ML VIAL IV PRN (09:15)
[2025-03-10] MEDS: PANTOPRAZOLE SODIUM 40 MG/VIAL IV SCH (10:10)
[2025-03-10] MEDS: INSULIN REGULAR (HUMULIN R) 1000UNITS/10ML VIAL IV NR (10:10)
[2025-03-10] MEDS: DEXTROSE 50% WATER 50ML SYRINGE IV NR (10:11)
[2025-03-10] MEDS: FUROSEMIDE 100MG/10ML VIAL IV NR (10:11)
[2025-03-10] MEDS: SODIUM BICARBONATE 8.4% 50MEQ/50ML SYR IV NR (10:11)
[2025-03-10] MEDS: CALCIUM GLUCONATE 100MG/ML 10ML VIAL IV NR (10:54)
[2025-03-10 12:50] LABS: HEPATITIS A AB IGM NEGATIVE (Negative)
[2025-03-10 12:51] LABS: HEPATITIS B CORE AB IGM NEGATIVE (Negative); HEPATITIS C AB NON REACTIVE (Neg) (Negative)
[2025-03-10] MEDS: FUROSEMIDE 40MG/4ML VIAL IVP SCH (18:23)
[2025-03-10] MEDS: MORPHINE SULFATE 4 MG/ML INJ (FOR IV/IM USE) IV SCH (21:55)
[2025-03-10 22:08] LABS: TROPONIN I HIGH SENSITIVITY 35 ng/L (3.0-34)
[2025-03-11] VITALS (8 sets, daily range): BP systolic 106–138; BP diastolic 41–86; PULSE 76–89; RESP 16–20; TEMP 36.3–36.8; O2SAT 94–98
[2025-03-11 08:26] LABS: BASOPHILS % 0.7 % (0.0-2.0); EOSINOPHILS % 4.1 % (0.0-5.0); HEMATOCRIT. 24.8 % (36.0-48.0); HEMOGLOBIN. 8.0 g/dL (12.0-16.0); LYMPHOCYTES % 16.6 % (20.0-50.0); MEAN PLATELET VOLUME 8.7 fl (7.4-10.4); MONOCYTES % 8.7 % (2.0-8.0); NEUTROPHILS % 69.9 % (40.0-76.0); PLATELET 311 x1000/uL (130-400); RED BLOOD CELL COUNT 2.77 mill/uL (4.2-5.4); RED CELL DISTRIBUTION WIDTH 15.7 % (11.6-14.6)
[2025-03-11 08:49] LABS: UREA NITROGEN BLOOD 46.0 mg/dL (9-23)
[2025-03-11 09:08] LABS: CREATININE 4.6 mg/dL (0.6-1.0)
[2025-03-11] MEDS: ACETAMINOPHEN 325MG TABLET PO PRN (16:12)
[2025-03-11 17:02] LABS: INR 1.0
[2025-03-12] VITALS (19 sets, daily range): BP systolic 112–183; BP diastolic 54–84; PULSE 72–100; RESP 19–22; TEMP 36.2–36.78072; O2SAT 93–100
[2025-03-12] MEDS ORDERED: DIPHENHYDRAMINE 50MG/ML VIAL ONE (07:18)
[2025-03-12] MEDS ORDERED: VERAPAMIL HCL 2.5 MG/1 ML 2ML VIAL IV ONE (07:18)
[2025-03-12] MEDS ORDERED: HEPARIN 1000 UNITS/ML 10ML ONE ×2 (07:19→09:14)
[2025-03-12] MEDS ORDERED: IODIXANOL 320MG/ML 100 ML BOTTLE IV ONE ×3 (07:19→09:32)
[2025-03-12] MEDS ORDERED: LIDOCAINE HCL 1% 20ML VIAL ONE (07:19)
[2025-03-12 08:22] LABS: BASOPHILS % 0.6 % (0.0-2.0); EOSINOPHILS % 3.3 % (0.0-5.0); HEMATOCRIT. 24.1 % (36.0-48.0); HEMOGLOBIN. 7.9 g/dL (12.0-16.0); LYMPHOCYTES % 17.7 % (20.0-50.0); MEAN PLATELET VOLUME 9.1 fl (7.4-10.4); MONOCYTES % 9.0 % (2.0-8.0); NEUTROPHILS % 69.4 % (40.0-76.0); PLATELET 306 x1000/uL (130-400); RED BLOOD CELL COUNT 2.69 mill/uL (4.2-5.4); RED CELL DISTRIBUTION WIDTH 15.5 % (11.6-14.6)
[2025-03-12] MEDS ORDERED: MIDAZOLAM HCL 2 MG/2 ML VIAL ONE (08:27)
[2025-03-12] MEDS ORDERED: FENTANYL CITRATE/PF 50MCG/ML 2ML VIAL ONE (08:27)
[2025-03-12 08:39] LABS: UREA NITROGEN BLOOD 53.0 mg/dL (9-23)
[2025-03-12 08:43] LABS: CREATININE 5.6 mg/dL (0.6-1.0)
[2025-03-12] MEDS ORDERED: ASPIRIN 325MG TABLET ONE (09:52)
[2025-03-12] MEDS ORDERED: CLOPIDOGREL 75MG TABLET ONE (09:53)
[2025-03-12] MEDS ORDERED: HYDRALAZINE 20MG/ML VIAL ONE (10:00)
[2025-03-12] MEDS ORDERED: ATROPINE SULFATE 1MG/10ML SYR IV PRN (10:15)
[2025-03-12] MEDS ORDERED: SODIUM CHLORIDE 45ML SPRAY NS PRN (16:30)
[2025-03-12] MEDS: IOHEXOL-350 100 ML BOTTLE ONE (16:51)
[2025-03-12] MEDS ORDERED: IPRATROPIUM/ALBUTEROL 0.5-3(2.5)MG/3ML NEB HHN SCH (18:00)
[2025-03-12] MEDS: ACETAMINOPHEN 325MG TABLET PO PRN (22:41)
[2025-03-13] VITALS (9 sets, daily range): BP systolic 125–155; BP diastolic 56–65; PULSE 76–96; RESP 13–22; TEMP 36.4–36.8; O2SAT 92–100
[2025-03-13 07:40] LABS: BASOPHILS % 0.4 % (0.0-2.0); EOSINOPHILS % 2.2 % (0.0-5.0); HEMATOCRIT. 24.1 % (36.0-48.0); HEMOGLOBIN. 8.0 g/dL (12.0-16.0); LYMPHOCYTES % 14.4 % (20.0-50.0); MEAN PLATELET VOLUME 8.8 fl (7.4-10.4); MONOCYTES % 8.5 % (2.0-8.0); NEUTROPHILS % 74.5 % (40.0-76.0); PLATELET 296 x1000/uL (130-400); RED BLOOD CELL COUNT 2.71 mill/uL (4.2-5.4); RED CELL DISTRIBUTION WIDTH 15.8 % (11.6-14.6)
[2025-03-13 07:47] LABS: UREA NITROGEN BLOOD 26.0 mg/dL (9-23)
[2025-03-13] MEDS: ONDANSETRON HCL 4MG/2ML INJ IV PRN (07:48)
[2025-03-13 08:19] LABS: CREATININE 3.5 mg/dL (0.6-1.0)
[2025-03-13] MEDS: ASPIRIN 81MG TABLET PO SCH (08:43)
[2025-03-14] VITALS (7 sets, daily range): BP systolic 108–160; BP diastolic 55–80; PULSE 75–84; RESP 16–19; TEMP 36.5–36.7; O2SAT 89–99
[2025-03-14 12:17] LABS: PROTEIN BODY FLUID 3.4 gm/dL
[2025-03-14 14:09] LABS: BG BASE EXCESS 0.0 mmol/L (-2.0-3.0); BG CARBOXYHEMOGLOBIN 1.9 % (0.5-1.5); BG DEOXYHEMOGLOBIN 12.6 % (0.0-5.0); BG FRACTION INSPIRED OXYGEN 21; BG HCO3 ACT 24.4 mmol/L (21.0-28.0); BG METHEMOGLOBIN 0.3 % (0.5-1.5); BG OXYGEN SATURATION 87.1 % (94.0-98.0); BG OXYHEMOGLOBIN 85.2 % (94.0-98.0); BG PCO2 38.4 mmHg (32.0-45.0); BG PH 7.421 (7.350-7.450); BG PO2 53.6 mmHg (83.0-108.0); BG SAMPLE SITE LEFT RADIAL; BG TOTAL HEMOGLOBIN 8.8 g/dL (12.0-16.0); BG VENT MODE ROOM AIR
[2025-03-15] VITALS (13 sets, daily range): BP systolic 108–154; BP diastolic 55–79; PULSE 73–94; RESP 15–24; TEMP 36.6–36.9; O2SAT 94–100
[2025-03-15] MEDS ORDERED: NALOXONE HCL 0.4MG/ML VIAL IV PRN (10:15)
[2025-03-15] MEDS: LACTULOSE 20G/30ML UDC PO SCH (18:09)
[2025-03-15] MEDS: OXYCODONE HCL 5MG TABLET PO PRN (18:09)
[2025-03-16] VITALS: BP 139/70; PULSE 78; RESP 22; TEMP 36.8; O2SAT 100
[2025-03-16 04:00] VITALS: BP 141/66; PULSE 79; RESP 16; TEMP 36.7; O2SAT 99
[2025-03-16 08:00] VITALS: BP 125/51; PULSE 80; RESP 18; TEMP 37.2; O2SAT 98
[2025-03-16] MEDS ORDERED: ASPI-1160 PO (09:26)
[2025-03-16] MEDS ORDERED: CLOP-31 MT (09:26)
[2025-03-16] MEDS: SORBITOL 70% SOLN 30ML PO SCH (10:14)
[2025-03-16 11:47] VITALS: BP 106/70; PULSE 85; RESP 19; TEMP 98.2
[2025-03-16 12:00] VITALS: BP 106/70; PULSE 85; RESP 21; TEMP 36.8; O2SAT 99
== END 2025-03-16 12:50 | disposition home health service (06) | DRG 174 ==
LOC: ER 20:59 → 7WST 03-09 02:45 → EDBEDREQ 03-09 02:48 → EDBEDREQTM 03-09 02:48 → ENRESERV 03-09 03:28 → 7WST 03-10 01:46 → 3WST 03-12 15:21
PROVIDERS: ADMIT Internal Medicine; ATTEND Internal Medicine
PROC: 5A1D70Z Performance of Urinary Filtration, Intermittent, Less than 6 Hours Per Day (ICD-10-PCS; 2025-03-10)
PROC: 027035Z Dilation of Coronary Artery, One Artery with Two Drug-eluting Intraluminal Devices, Percutaneous Approach (ICD-10-PCS; principal; 2025-03-12)
PROC: 4A023N7 Measurement of Cardiac Sampling and Pressure, Left Heart, Percutaneous Approach (ICD-10-PCS; 2025-03-12)
PROC: B211YZZ Fluoroscopy of Multiple Coronary Arteries using Other Contrast (ICD-10-PCS; 2025-03-12)
PROC: B41FYZZ Fluoroscopy of Right Lower Extremity Arteries using Other Contrast (ICD-10-PCS; 2025-03-12)
PROC: 5A1D70Z Performance of Urinary Filtration, Intermittent, Less than 6 Hours Per Day (ICD-10-PCS; 2025-03-12)
PROC: 5A1D70Z Performance of Urinary Filtration, Intermittent, Less than 6 Hours Per Day (ICD-10-PCS; 2025-03-15)
PROC: 0W993ZZ Drainage of Right Pleural Cavity, Percutaneous Approach (ICD-10-PCS; 2025-03-16)
DX: I21.4 Non-ST elevation (NSTEMI) myocardial infarction (principal); J96.01 Acute respiratory failure with hypoxia; I13.2 Hypertensive heart and chronic kidney disease with heart failure and with stage 5 chronic kidney disease, or end stage renal disease; L89.153 Pressure ulcer of sacral region, stage 3; J90 Pleural effusion, not elsewhere classified; N18.6 End stage renal disease; I16.1 Hypertensive emergency; D63.8 Anemia in other chronic diseases classified elsewhere; I31.39 Other pericardial effusion (noninflammatory); I50.32 Chronic diastolic (congestive) heart failure; J98.11 Atelectasis; I24.9 Acute ischemic heart disease, unspecified; E87.5 Hyperkalemia; N17.9 Acute kidney failure, unspecified; R59.0 Localized enlarged lymph nodes; E11.22 Type 2 diabetes mellitus with diabetic chronic kidney disease; K56.41 Fecal impaction; I25.10 Atherosclerotic heart disease of native coronary artery without angina pectoris; Z99.2 Dependence on renal dialysis; Z88.0 Allergy status to penicillin; Z85.3 Personal history of malignant neoplasm of breast; Z91.148 Patient's other noncompliance with medication regimen for other reason; Z98.51 Tubal ligation status
CPT/HCPCS: 32555; 36415; 36600; 71045; 71275; 74174; 76604; 80048; 80076; 82375; 82805; 82962; 83615; 84132; 84155; 84484; 85025; 85027; 85347; 85379; 86705; 86709; 87340; 90935; 92928; 93005; 93308; 93458; 93970; 94070; 94640; 94664; 94760; 97162; 97530; 99291; A4606; C1725; C1769; C1874; C1887; C1893; J0360; J0612; J1200; J1644; J1815; J1938; J2003; J2250; J2270; J2405; J2470; J3010; J3490; Q9967